=== PATIENT | male | born 1990 | race American Indian/Alaskan Native ===

== ENCOUNTER 2020-03-28 09:00 | Emergency (ER) | payer SELFPAY ==
[2020-03-28] MEDS ORDERED: Lidocaine 1% 30 ML SDV INJECT ONE (09:38)
[2020-03-28] MEDS ORDERED: Diphtheria,Pertussis(Acell),Tetanus Vaccine 0.5 ML SDV IM ONE (09:38)
[2020-03-28] MEDS ORDERED: Bacitracin Oint 1 GM U/D Packet TOP ONE (10:01)
--- NOTE | 2020-03-28 12:11 | EDM.PDOC ---
ED HPI GENERAL MEDICAL PROBLEM - General Chief Complaint: Laceration Stated Complaint: CUT RIGHT ARM [id number] Time Seen by Provider: 03/28/20 09:25 Source of Information: Reports: Patient, RN History Limitations: Reports: No Limitations - History of Present Illness INITIAL COMMENTS - FREE TEXT/NARRATIVE: 49-year-old male who presents to the ER with a laceration on his right arm. 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 he admits to minimal bleeding. States this was 2 hours ago us find a ride to the emergency room. Neurovascular status intact. He had a tetanus shot 14 years ago. He denies any concerns at this time. Right Arm Pain Score (Numeric/FACES): 6 - Related Data Allergies Allergy/AdvReac Type Severity Reaction Status Date / Time No Known Allergies Allergy Verified 03/28/20 09:24 Home Meds: Home Meds . [No Known Home Meds] 03/28/20 [History] Past Medical History - Past Health History Medical/Surgical History: Denies Medical/Surgical History Social & Family History - Tobacco Use Smoking Status *Q: Current Every Day Smoker Years of Tobacco use: 14 Packs/Tins Daily: 0.5 - Recreational Drug Use Recreational Drug Use: No ED ROS GENERAL - Review of Systems Review Of Systems: Comprehensive ROS is negative, except as noted in HPI. ED EXAM, SKIN/RASH Exam: See Below Exam Limited By: No Limitations General Appearance: Alert, Anxious, Moderate Distress Respiratory/Chest: No Respiratory Distress, Lungs Clear, Normal Breath Sounds, No Accessory Muscle Use, Chest Non-Tender Cardiovascular: Normal Peripheral Pulses, Regular Rate, Rhythm, No Edema, No Gallop, No JVD, No Murmur, No Rub Extremities: Normal Inspection, Normal Range of Motion, Normal Capillary Refill Neurological: Alert, Oriented, No Motor/Sensory Deficits Psychiatric: Anxious Skin: Warm, Wound/Incision (1.7 cm laceration on the inner part of the right arm. bleeding controlled) Location, Skin: Upper Extremity, Right ED SKIN PROCEDURES - Laceration/Wound Repair Right Upper Medial Arm Appearance: Superficial Distal NVT: Neuro & Vascular Intact, No Tendon Injury Local Anesthesia - Lidocaine (Xylocaine): 1% Plain Local Anesthetic Volume: Other (8cc) Skin Prep: Chlorhexidine (Hibiciens), Sterile Drape Exploration/Debridement/Repair: Wound Explored, Explored to Base Closed with: Sutures Lac/Wound length In cm: 1.7 Suture Size: 3-0 Suture Type: Nylon, Interrupted Sterile Dressing Applied: Nurse Tetanus Status Addressed: Yes Complications: No Course - Vital Signs Last Recorded V/S: Last Vital Signs Temp 96.9 F 03/28/20 09:20 Pulse 119 H 03/28/20 09:20 Resp 16 03/28/20 09:20 BP 150/86 H 03/28/20 09:20 Pulse Ox 100 03/28/20 09:20 - Orders/Labs/Meds Meds: Medications Discontinued Medications Generic Name Dose Route Start Last Admin Trade Name Freq PRN Reason Stop Dose Admin Bacitracin 1 dose 03/28/20 10:01 03/28/20 10:12 Bacitracin Oint 1 Gm TOP 03/28/20 10:02 1 dose ONETIME ONE Administration Diphtheria/Tetanus/Acell Pertussis 0.5 ml 03/28/20 09:38 03/28/20 09:44 Adacel IM 03/28/20 09:39 0.5 ml .ONCE ONE Administration Lidocaine HCl 30 ml 03/28/20 09:38 03/28/20 09:44 Xylocaine-Mpf 1% INJECT 03/28/20 09:39 30 ml ONETIME ONE Administration - Re-Assessments/Exams Free Text/Narrative Re-Assessment/Exam: 03/28/20 12:15 See procedure note. Encourage him to keep wound clean and in tact.Follow up in seven days for suture removal. Patient verbalized understanding. Departure - Departure Time of Disposition: 10:00 Disposition: Home, Self-Care 01 Clinical Impression: Laceration of arm Qualifiers: Encounter type: initial encounter Laterality: right Qualified Code(s): S41.111A - Laceration without foreign body of right upper arm, initial encounter - Discharge Information Instructions: Sutured Wound Care, Laceration Care, Adult, [id number] Forms: ED Department Discharge Additional Instructions: Keep wound clean and dry. Removed sutures in seven in the clinic. Follow up with PCP. Avoid playing with knives. More instruction on infection included in the AVS. Sepsis Event Note (ED) - Evaluation Sepsis Screening Result: No Definite Risk - Focused Exam Vital Signs: Vital Signs Temp Pulse Resp BP Pulse Ox 03/28/20 09:20 96.9 F 119 H 16 150/86 H 100
== END 2020-03-28 10:12 | disposition home or self-care (01) ==
LOC: DL.ED 09:00
DX: S41.111A Laceration without foreign body of right upper arm, initial encounter (principal); F17.210 Nicotine dependence, cigarettes, uncomplicated; Z23 Encounter for immunization; W50.0XXA Accidental hit or strike by another person, initial encounter
CPT/HCPCS: 12001; 90471; 90715; 99282; J2001